=== PATIENT | female | born 1955 | race African-American/Black ===

== ENCOUNTER 2017-09-04 20:21 | Emergency (ER) | payer OTHER ==
[2017-09-04 21:16] LABS: Mean Corpuscular HGB CONC 32.7 g/dL (32.0-36.0); Mean Corpuscular Hemoglobin 33.7 pg (27.0-31.0); Mean Platelet Volume 7.5 fL (7.4-10.4); Platelet Count 161 thou/uL (130-400); RBC Distribution Width 11.8 % (11.5-14.5); Red Blood Cell (RBC) Count 4.76 mill/uL (4.20-5.40)
--- NOTE | 2017-09-04 21:21 | RAD ---
PORTABLE CHEST ONE VIEW: 09/04/17 HISTORY: 61-year-old female with history of dyspnea and shortness of breath. Heart size is normal. The lungs are clear. Bilateral nipple shadows are noted. No confluent pneumonia , overt edema, or pleural effusion. IMPRESSION: No acute intrathoracic disease. Stable from prior study. POS: [facility]
[2017-09-04 21:26] LABS: ALT (SGPT) 56 U/L (8-55); AST (SGOT) 99 U/L (5-34); Albumin 4.4 g/dL (3.5-5.0); Alcohol 130 mg/dL (Less than 10); Alkaline Phosphatase 43 U/L (40-150); Anion Gap 20 mmol/L (10-20); BUN (Urea Nitrogen) 5 mg/dL (9.8-20.1); Bilirubin, Total 0.6 mg/dL (0.2-1.2); Calc. Creatinine Clearance 0 mL/min (70-130); Carbon Dioxide 26 mmol/L (22-29); Chloride 91 mmol/L (98-107); Estimated GFR-MDRD Greater than 90; Globulin 2.9 g/dL (2.4-3.5); Glucose 96 mg/dL (70-105); Potassium 4.6 mmol/L (3.5-5.1); Protein, Total 7.3 g/dL (6.0-8.3); Sodium 132 mmol/L (136-145)
[2017-09-04] MEDS ORDERED: methylPREDNISolone Sod Succ/PF 125 MG/2 ML VIAL ONE (21:29)
[2017-09-04] MEDS ORDERED: Water For Inject, Bacteriostat 30 ML ONE (21:30)
[2017-09-04 21:35] LABS: CKMB 2.7 ng/mL (0-6.6); Troponin I Less than 0.010 ng/mL (< 0.028)
[2017-09-04 21:43] LABS: Eosinophils 1 % (0-10); Lymphocytes 27 % (21-51); MDiff Complete? YES; Monocytes 9 % (0-10); Neutrophil 60 % (42-75); Reactive Lymphocytes 3 % (0-10); White Blood Cell (WBC) Count 4.2 thou/uL (4.8-10.8)
--- NOTE | 2017-09-27 15:06 | EKG ---
Test Reason : Blood Pressure : / mmHG Vent. Rate : 101 BPM Atrial Rate : 101 BPM P-R Int : 126 ms QRS Dur : 066 ms QT Int : 340 ms P-R-T Axes : 079 063 082 degrees QTc Int : 440 ms Sinus tachycardia Biatrial enlargement Septal infarct , age undetermined Abnormal ECG Confirmed by ALEXANDRA HILL ([id number]), primer expeditor and drier ABIGAIL FRIEDMAN ([id number]) on 09/27/2017 3:04:34 PM Referred By: Confirmed By:ALEXANDRA HILL
== END 2017-09-05 00:04 | disposition home or self-care (01) ==
LOC: ERS 20:21
DX: J44.1 Chronic obstructive pulmonary disease with (acute) exacerbation (principal); F10.129 Alcohol abuse with intoxication, unspecified; E03.9 Hypothyroidism, unspecified; F32.9 Major depressive disorder, single episode, unspecified; Z79.899 Other long term (current) drug therapy; Y90.0 Blood alcohol level of less than 20 mg/100 ml
CPT/HCPCS: 36415; 71045; 80053; 80307; 82553; 84484; 85025; 93005; 94640; 96374; J2930; J7620

== ENCOUNTER 2017-12-18 13:57 | Outpatient (CLI) | payer OTHER | END 2017-12-18 13:58 | disposition home or self-care (01) | LOC: BICMAMMO 13:57 | PROVIDERS: ATTEND Internal Medicine | DX: Z12.31 Encounter for screening mammogram for malignant neoplasm of breast (principal); R92.1 Mammographic calcification found on diagnostic imaging of breast; Z80.3 Family history of malignant neoplasm of breast | CPT/HCPCS: 77063; 77067 ==

== ENCOUNTER 2020-02-17 07:31 | Inpatient (IN) | payer OTHER ==
[2020-02-17 08:27] LABS: #Lymphocytes 0.7 thou/uL (1.20-3.40); #Monocytes 0.9 thou/uL (0.11-0.59); #Neutrophils 9.7 thou/uL (1.40-6.50); %Basophils 0.4 % (0.0-1.0); %Eosinophils 0.3 % (0.0-10.0); %Monocytes 8.3 % (0.0-10.0); %Neutrophils 85.1 % (42.0-75.0); Hemoglobin 14.9 g/dL (12.0-16.0); Mean Corpuscular HGB CONC 30.9 g/dL (32.0-36.0); Mean Corpuscular Hemoglobin 32.2 pg (27.0-31.0); Mean Platelet Volume 7.5 fL (7.4-10.4); Platelet Count 301 thou/uL (130-400); RBC Distribution Width 11.4 % (11.5-14.5); Red Blood Cell (RBC) Count 4.65 mill/uL (4.20-5.40); White Blood Cell (WBC) Count 11.4 thou/uL (4.8-10.8)
[2020-02-17] MEDS ORDERED: Fentanyl 100 MCG/2 ML VIAL ONE (08:27)
[2020-02-17] MEDS ORDERED: Ondansetron PF 4 MG/2 ML Vial ONE (08:28)
--- NOTE | 2020-02-17 08:39 | RAD ---
Exam: Chest one view HISTORY:Shortness of breath. Pain. Comparison: 09/04/2017 FINDINGS: Cardiac silhouette: Normal Aorta: Unremarkable Pulmonary vessels: Normal Costophrenic angles: Clear LUNGS: No masses or consolidation. Stable hyperinflation. Pneumothorax: None Osseous abnormalities: None IMPRESSION: 1. No acute cardiac pulmonary process 2. Stable hyperinflation. Emphysema. COPD.
[2020-02-17 08:49] LABS: ALT (SGPT) 11 U/L (8-55); AST (SGOT) 24 U/L (5-34); Albumin 3.7 g/dL (3.4-4.8); Alkaline Phosphatase 39 U/L (40-110); Anion Gap 21 mmol/L (10-20); BUN (Urea Nitrogen) 11 mg/dL (9.8-20.1); Bilirubin, Total 0.5 mg/dL (0.2-1.2); CK (CPK) 36 U/L (29-168); Calc. Creatinine Clearance 0 mL/min (70-130); Calcium 9.9 mg/dL (7.8-10.44); Carbon Dioxide 30 mmol/L (23-31); Chloride 92 mmol/L (98-107); Estimated GFR-MDRD 88; Globulin 2.8 g/dL (2.4-3.5); Glucose 176 mg/dL (80-115); Potassium 4.3 mmol/L (3.5-5.1); Protein, Total 6.5 g/dL (6.0-8.3); Sodium 139 mmol/L (136-145)
[2020-02-17] MEDS ORDERED: Cefepime 2 GM VIAL ONE (08:52)
[2020-02-17 09:01] LABS: Bacteria/HPF 2+ HPF (None Seen); Bilirubin Negative (Negative); Blood, Urine 1+ (Negative); Clarity Extra Turbid (Clear); Glucose, Urine (Dipstick) 30 mg/dL (Negative); Ketone, Urine Negative (Negative); Leukocyte 500 Leu/uL (Negative); Nitrite Negative (Negative); Protein, Urine (Dipstick) 100 mg/dL (Neg-Trace); RBC/HPF 21-50 HPF (0-3); Specific Gravity, Urine 1.021 (1.002-1.036); Squamous Epithelial 0-3 HPF (0-3); WBC/HPF Greater than 50 HPF (0-3)
[2020-02-17] MEDS ORDERED: Vancomycin HCl 750 MG in Sodium Chloride 0.9% 250 ML 250 ML IVPB SCH (09:15)
--- NOTE | 2020-02-17 11:28 | CT ---
ABDOMEN AND PELVIC CT SCAN WITH IV CONTRAST: Date: 02/17/2020 HISTORY: Abdominal pain, shortness of breath. COMPARISON: 06/01/2018. FINDINGS: Bilateral centrilobular emphysema changes with some minimal increased markings in the right middle lo be and lingula, evidence for some probable chronic change. Very extensive ascites noted throughout th e abdomen and pelvis. There is very minimal or nonexistent intra-abdominal and retroperitoneal fat wh ich considerably lowers the sensitivity of this study. There are some markedly dilated air and fluid- filled small bowel loops, particularly in the pelvis where there appears to be some markedly dilated somewhat matted appearing small bowel loops with minimal gas and fecal material in the colon which is somewhat decompressed, evidence for high grade small bowel obstruction. The liver, gallbladder, panc reas, spleen, and adrenal glands are unremarkable. No evidence for renal hydronephrosis, renal calcul us, or obstruction. No CT evidence for acute appendicitis. IMPRESSION: 1. Very markedly dilated fluid and air-filled small bowel loops, including some matted appearing sma ll bowel loops down in the pelvis with very little gas and fecal material in a nondistended colon, ev idence for high grade small bowel obstruction. 2. Extensive ascites throughout the abdomen and pelvis. 3. No evidence for extraluminal or free intraperitoneal air. POS: [facility]
[2020-02-17] MEDS ORDERED: Acetaminophen 325 MG/10.15 ML UDCUP PO PRN (12:56)
[2020-02-17] MEDS ORDERED: Ondansetron PF 4 MG/2 ML Vial IVP PRN (12:56)
[2020-02-17] MEDS ORDERED: HumaLOG 300 UNITS/3 ML VIAL SC PRN (12:56)
--- NOTE | 2020-02-17 12:58 | PDOC.HHP ---
Hospitalist HPI - History of Present Illness abd pain, shortness of breath History of Present Illness: This is a 64 year old female with history of alcohol abuse, tobacco abuse, crack use, COPD on home oxygen who presents to the ER with abdominal pain and shortness of breath. THe patient is a poor historian. She states her abdominal pain started yesterday. It was in the lower quadrants and describes it as feeling similar to her periods. SHe stated the pain radiated to her back. Her pain is worst with laying in certain positions. She denies vaginal bleeding. She started vomiting yesterday after every meal and states the vomit was mucus - like in consistency. . SHe also reported burning pain with urination and urinary incontinence. THe patient denied eating any outside food recently. She had diarrhea on Sunday and since then has been constipated. Her last bowel movement was Sunday. She has not passed any gas. The patient also reports shortness of breath when she talks too much, is unable to comment on SOB at rest versus exertion. She denies cough, chest pain, fevers , chills, runny nose, sore throat. THe patient is very cachexic, reports she has lost a lot of weight in the past year for unclear reason. She does not know what medicines she takes at home, but denies taking aspirin or any blood thinners. ED Course: The patient presented to the ER with normal BP, tachycardia with heart rate 111 to 120. Labs showed a WBC of 11.3 and lactate of 9.0. UA showed > 50 WBC, turbid urine and 500 leukocyte esterase. EKG showed sinus tachycardia. CT abdomen showed high grade small bowel obstruction. General surgery was consulted , but the patient refused surgery. She has received 3L of IV fluid while in the ER. Her repeat lactate is 7. SHe received vancomycin and cefepime while in the ER. Hospitalist ROS - Review of Systems Constitutional: denies: fever, chills ENT: denies: mouth pain Respiratory: reports: shortness of breath. denies: cough, dry Cardiovascular: denies: chest pain, palpitations, orthopnea Gastrointestinal: reports: nausea, abdominal pain, constipation. denies: vomiting Genitourinary: reports: dysuria, incontinence. denies: frequency Musculoskeletal: reports: back pain Skin: denies: rash, lesions Neurological: denies: weakness, numbness Hospitalist History - Past Medical History Cardiac: reports: HTN Pulmonary: reports: COPD - Past Surgical History Past Surgical History: reports: Hysterectomy, Tonsillectomy - Family History Other Family History: heart problems in the family - Social History Smoking Status: Current every day smoker (smokes few cigarettes daily. She smokes crack occasionally. She drinks 6 beers daily) - Exam General Appearance: NAD, awake alert General - other findings: patient laying in bed curled up due to pain Eye: PERRL, anicteric sclera ENT: normocephalic atraumatic, no oropharyngeal lesions Neck: supple, no JVD Heart: RRR, no murmur, no gallops, no rubs Respiratory: CTAB, no wheezes, no rales, no ronchi Gastrointestinal: soft Gastrointestinal - other findings: diffuse tenderness in all four quadrants, mild distension, hypoactive BS Extremities: no cyanosis, no clubbing, no edema Skin: normal turgor, no lesions, no rashes Neurological: cranial nerve grossly intact, normal sensation to touch, no focal deficits, no new deficit Musculoskeletal: normal tone, normal strength Musculoskeletal - other findings: diffuse cachexia Psychiatric: normal affect, normal behavior, A&O x 3 Hospitalist Results - Labs Result Diagrams: 02/17/20 08:15 02/17/20 08:15 Lab results: WBC 11.4 thou/uL (4.8-10.8) H 02/17/20 08:15 Hgb 14.9 g/dL (12.0-16.0) 02/17/20 08:15 Hct 48.4 % (36.0-47.0) H 02/17/20 08:15 MCV 104.0 fL (78.0-98.0) H 02/17/20 08:15 Plt Count 301 thou/uL (130-400) 02/17/20 08:15 Neutrophils % 85.1 % (42.0-75.0) H 02/17/20 08:15 Sodium 139 mmol/L (136-145) 02/17/20 08:15 Potassium 4.3 mmol/L (3.5-5.1) 02/17/20 08:15 Chloride 92 mmol/L (98-107) L 02/17/20 08:15 Carbon Dioxide 30 mmol/L (23-31) 02/17/20 08:15 BUN 11 mg/dL (9.8-20.1) 02/17/20 08:15 Creatinine 0.68 mg/dL (0.6-1.1) 02/17/20 08:15 Glucose 176 mg/dL (80-115) H 02/17/20 08:15 Lactic Acid 7.0 mmol/L (0.5-2.2) H* 02/17/20 11:21 Calcium 9.9 mg/dL (7.8-10.44) 02/17/20 08:15 Total Bilirubin 0.5 mg/dL (0.2-1.2) 02/17/20 08:15 AST 24 U/L (5-34) 02/17/20 08:15 ALT 11 U/L (8-55) 02/17/20 08:15 Alkaline Phosphatase 39 U/L (40-110) L 02/17/20 08:15 Creatine Kinase 36 U/L (29-168) 02/17/20 08:15 Serum Total Protein 6.5 g/dL (6.0-8.3) 02/17/20 08:15 Albumin 3.7 g/dL (3.4-4.8) 02/17/20 08:15 Urine Ketones Negative mg/dL (Negative) 02/17/20 08:48 Urine Blood 1+ (Negative) A 02/17/20 08:48 Urine Nitrite Negative (Negative) 02/17/20 08:48 Ur Leukocyte Esterase 500 Ki/uL (Negative) A 02/17/20 08:48 Urine RBC 21-50 HPF (0-3) A 02/17/20 08:48 Urine WBC Greater than 50 HPF (0-3) A 02/17/20 08:48 Ur Squamous Epith Cells 0-3 HPF (0-3) 02/17/20 08:48 Urine Bacteria 2+ HPF (None Seen) A 02/17/20 08:48 - EKG Interpretation EKG: sinus tachycardia Hospitalist H&P A/P - Plan Plan: CT abdomen: markedly dilated fluid and air filled small bowel loops consistent with high grade WENDY Chest X ray: normal This is a 64 year old female with past medical history of COPD, hypertension, emphysema who presents with abdominal pain, found to have high grade SBO High grade small bowel obstruction - patient noted to have high grade obstruction on CT abdomen. SHe refused surgery. Currently not nauseous or vomiting, but if occurs place NG tube Severe lactic acidosis - lactate of 9 on presentation, likely ischemia related from high grade SBO vs from UTI - she is s/p 3L of fluid - continue IV fluids and IV antibiotics .BLood and urine culture pending. Chest X ray normal UTI - UA consistent with UTI, s/p vanc and cefepime - will continue empiric vanc and zosyn pending urine culture Ascites - likely from SBO - continue with hydration given lactic acidosis Chronic respiratory failure from COPD - albuterol prn. Chest X ray was normal History of hypertension - hold any home meds at this time Hyperglycemia - check hemoglobin A1C in am. Blood sugar 170's Diet: NPO DVT prophylaxis: will hold for now in case she needs surgery and changes mind Code status: full code
[2020-02-17] MEDS ORDERED: Sodium Chloride 0.9% 1,000 ML IV SCH (13:30)
[2020-02-17] MEDS ORDERED: Iopamidol-370 76% 500 ML 1 ML ONE (14:56)
[2020-02-17 18:14] LABS: Lactic Acid 3.6 mmol/L (0.5-2.2)
[2020-02-17 19:31] VITALS: BMI 11.5
[2020-02-17] MEDS: Sodium Chloride 0.9% 1,000 ML IV SCH (19:59)
[2020-02-17] MEDS: Piperacillin/Tazobactam 3.375 GM in Sodium Chloride 0.9% 100 ML IVPB SCH ×2 (22:09)
[2020-02-17] MEDS: Famotidine/PF 20 mg/2ml Vial SLOW IVP SCH (22:10)
[2020-02-17] MEDS: Vancomycin 1 GM in Premix Bag 1 BAG IVPB SCH (22:10)
[2020-02-18] MEDS: Sodium Chloride 0.9% 1,000 ML IV SCH ×2 (01:16→09:32)
[2020-02-18] MEDS: Piperacillin/Tazobactam 3.375 GM in Sodium Chloride 0.9% 100 ML IVPB SCH ×4 (02:07→20:48)
[2020-02-18 05:55] LABS: ALT (SGPT) 13 U/L (8-55); AST (SGOT) 33 U/L (5-34); Albumin 3.4 g/dL (3.4-4.8); Alkaline Phosphatase 31 U/L (40-110); Anion Gap 16 mmol/L (10-20); BUN (Urea Nitrogen) 12 mg/dL (9.8-20.1); Bilirubin, Total 0.4 mg/dL (0.2-1.2); Calc. Creatinine Clearance 60 mL/min (70-130); Calcium 8.8 mg/dL (7.8-10.44); Carbon Dioxide 24 mmol/L (23-31); Chloride 104 mmol/L (98-107); Estimated GFR-MDRD Greater than 90; Globulin 2.9 g/dL (2.4-3.5); Glucose 127 mg/dL (80-115); Potassium 4.9 mmol/L (3.5-5.1); Protein, Total 6.3 g/dL (6.0-8.3); Sodium 139 mmol/L (136-145)
[2020-02-18 06:27] LABS: Thyroid Stimulating Hormone 0.6423 uIU/mL (0.35-4.94)
[2020-02-18] MEDS ORDERED: Prevnar 13-Val Conj/PF 0.5 ML SYRINGE IM ONE (09:00)
[2020-02-18] MEDS: Folic Acid 0.4 MG in Syringe 0 ML SC SCH (09:32)
[2020-02-18] MEDS: Famotidine/PF 20 mg/2ml Vial SLOW IVP SCH ×2 (09:32→20:48)
[2020-02-18] MEDS: Vancomycin 1 GM in Premix Bag 1 BAG IVPB SCH ×2 (09:32→20:49)
[2020-02-18 09:55] LABS: Hemoglobin 12.3 g/dL (12.0-16.0); Mean Corpuscular HGB CONC 31.2 g/dL (32.0-36.0); Mean Corpuscular Hemoglobin 32.7 pg (27.0-31.0); Mean Platelet Volume 7.9 fL (7.4-10.4); Platelet Count 257 thou/uL (130-400); RBC Distribution Width 11.4 % (11.5-14.5); Red Blood Cell (RBC) Count 3.77 mill/uL (4.20-5.40); White Blood Cell (WBC) Count 16.2 thou/uL (4.8-10.8)
[2020-02-18 10:04] LABS: Lactic Acid 1.4 mmol/L (0.5-2.2)
[2020-02-18 11:47] LABS: Hemoglobin 10.6 g/dL (12.0-16.0); Mean Corpuscular Hemoglobin 32.1 pg (27.0-31.0); Mean Platelet Volume 7.7 fL (7.4-10.4); Platelet Count 261 thou/uL (130-400); RBC Distribution Width 11.4 % (11.5-14.5); Red Blood Cell (RBC) Count 3.29 mill/uL (4.20-5.40); White Blood Cell (WBC) Count 19.3 thou/uL (4.8-10.8)
--- NOTE | 2020-02-18 12:16 | RAD ---
SINGLE VIEW CHEST: Date: 02/18/2020 COMPARISON: CT abdomen/pelvis dated 02/17/2020. HISTORY: Shortness of breath. FINDINGS: Single view of the chest shows normal sized cardiomediastinal silhouette. There is volume loss in the right thorax. There may be a small right pleural effusion. Bilateral round symmetric opacities proje cting over the lower lobes likely represent nipple shadows. No pneumothorax is seen. Scarring is seen in both lung apices. Lucency beneath the left hemidiaphragm is concerning for possible free air beneath the left hemidiaph ragm. IMPRESSION: 1. Possible small right pleural effusion. 2. Possible free air beneath the left hemidiaphragm. This could be artifactual and represent superim position of the gastric bubble with the lower lung. Nurse, Serafin, in the patient's unit was notified of the findings at 1112 hours on 02/18/2020. Code CR. POS: [facility]
--- NOTE | 2020-02-18 12:16 | RAD ---
KUB: COMPARISON: 06/15/2003. CT abdomen/pelvis 02/17/2020. HISTORY: Followup small bowel obstruction. FINDINGS: An anterior view of the abdomen shows air in the stomach. There are also a few air-filled loops of s mall bowel in the left lower quadrant of the abdomen measuring up to 4.3 cm in size. Air and stool a re seen in the rectum. No suspicious calcifications are seen. IMPRESSION: Air-filled loops of small bowel may be secondary to ileus or small bowel obstruction. POS: [facility]
[2020-02-18 12:36] LABS: SARS-CoV-2 MS2 Positive; SARS-CoV-2 N Gene Negative; SARS-CoV-2 S Gene Negative; SARS-CoV-2 by NAA Not Detected (NotDetected); SARS-CoV-2 orf1ab Negative
[2020-02-18] MEDS ORDERED: Albuterol Sulfate 2.5 mg/3 ml Neb NEB PRN (12:46)
[2020-02-18] MEDS ORDERED: Mometasone 200 MCG/Formoterol 5 MCG 120 PUFF INHALER INH SCH (12:50)
--- NOTE | 2020-02-18 13:17 | CON ---
DATE OF CONSULTATION: HISTORY OF PRESENT ILLNESS: Mikala Chopra is a 64-year-old cachectic female, who is in the MICU. I was notified she is having difficulty breathing. She has an acute abdomen and has declined any surgical intervention. She has seen Dr. Auguste in office many years ago and apparently has longstanding history of significant tobacco abuse and significant alcohol abuse. She also has history of cocaine abuse in the past, particularly crack cocaine. She has smoked a pack a day for 30 years. Additional information is such that she comes into the hospital yesterday, presented with abdominal pain and shortness of breath. Not able to give much additional information at this stage, but previous extensive history is outlined, pertinent for past medical history of COPD, tobacco abuse, alcohol abuse, substance abuse, hypertension. PAST SURGICAL HISTORY: Apparently hysterectomy. HOME MEDICINE: Includes apparently albuterol inhaler. REVIEW OF SYSTEMS: Difficult to obtain. PHYSICAL EXAMINATION: GENERAL: Cachectic. VITAL SIGNS: Temperature 98, blood pressure , pulse 120, sats 100%, breathing 34 times a minute. CHEST: Decreased breath sounds. No wheezing. CARDIAC: Normal S1, S2. No gallops. ABDOMEN: Distended, soft. DIAGNOSTIC STUDIES: White count 19,000, H and H of 10 and 30. Lytes are normal. Urine is growing Enterococcus. TSH is normal. Lactic acid was markedly elevated. BNP was normal. X-ray shows free air possibly pleural effusion, marked hyperinflation. End-stage COPD, respiratory failure, acute abdomen, sepsis syndrome, cachexia, alcohol abuse, tobacco abuse. Apparently, the patient has refused surgery. She was started on Zosyn, thiamine, vancomycin, refusing neb treatments. Palliative Care is going to talk to the patient and the family. Clearly, I am concerned that she is going to have a cardiopulmonary arrest because of sepsis and because of her severe multiorgan dysfunction. We will follow while in the MICU. We will notify Dr. Auguste, who has seen her in the past. She did not want any surgical intervention. Hopefully, we can make her comfort care, DNR. This is a consultation note, 70 minutes, 50% direct patient care. Job ID: [id number]
--- NOTE | 2020-02-18 13:58 | PDOC.HOSPP ---
- Subjective Encounter Date: 02/18/20 Encounter Time: 09:30 Subjective: The patient states she denies abdominal pain but has pain when you touch her abdomen or she moves too much. She thinks she passed gas once last night. She has not had a bowel movement yet or passed gas today She has no nausea or vomiting. She is still not interested in surgery The patient states she feels short of breath, is requesting that she get her symbicort - Objective Vital Signs & Weight: Vital Signs (12 hours) Temp Pulse Ox 02/18/20 13:35 99 02/18/20 11:22 98.7 F 02/18/20 07:00 98.6 F Weight Admit Weight 73 lb 11.2 oz Weight 73 lb 11.2 oz Most Recent Monitor Data Heart Rate from ECG 119 NIBP 115/79 NIBP BP-Mean 91 Respiration from ECG 35 SpO2 100 I&O: 02/17/20 02/18/20 02/19/20 06:59 06:59 06:59 Intake Total 882 Balance 882 Result Diagrams: 02/18/20 11:29 02/18/20 03:30 Additional Labs: Accuchecks 02/18/20 02/18/20 02/18/20 12:18 06:23 00:13 POC Glucose 150 H 111 H 121 H 02/17/20 20:53 POC Glucose 128 H Hospitalist ROS - Review of Systems Constitutional: denies: fever, chills - Medication Medications: Active Medications Generic Name Dose Route Start Last Admin Trade Name Christopherq PRN Reason Stop Dose Admin Famotidine 20 mg 02/17/20 21:00 02/18/20 09:32 Pepcid SLOW IVP 20 mg Q12HR CHRIS Administration Sodium Chloride 1,000 mls @ 100 mls/hr 02/17/20 12:45 02/18/20 09:32 Normal Saline 0.9% IV 1,000 mls .Q10H CHRIS Administration Piperacillin Sod/Tazobactam 100 mls @ 200 mls/hr 02/17/20 14:00 02/18/20 09:32 Sod 3.375 gm/ Sodium Chloride IVPB 100 mls 0200,0800,1400,2000 CHRIS Administration Vancomycin HCl 1 gm/ Device 200 mls @ 200 mls/hr 02/17/20 21:00 09/16/20 09:32 IVPB 200 mls Q12HR CHRIS Administration Folic Acid 0.4 mg/ Syringe 0.08 mls @ 0 mls/hr 02/18/20 09:00 02/18/20 09:32 SC 0.08 mls DAILY CHRIS Administration Thiamine HCl 100 mg/ Sodium 51 mls @ 100 mls/hr 02/17/20 23:59 02/18/20 02:07 Chloride IVPB 51 mls Q24HR CHRIS Administration Mometasone Furoate/Formoterol Fumar 1 puff 02/18/20 12:50 02/18/20 13:05 Mometasone 200 Mcg/Formoterol 5 Mcg 120 Puff Inhaler INH 02/18/20 14:00 Not Given 1250 CHRIS - Exam General Appearance: NAD, awake alert Eye: PERRL, anicteric sclera ENT: normocephalic atraumatic, no oropharyngeal lesions Neck: no JVD Heart: RRR, no murmur, no gallops, no rubs Respiratory: CTAB, no wheezes, no rales, no ronchi Gastrointestinal - other findings: firm, distended, diffusely tender to palpation with some guarding Extremities: no edema Skin: normal turgor, no lesions, no rashes Neurological: cranial nerve grossly intact, normal sensation to touch, no focal deficits, no new deficit Hosp A/P - Plan CT abdomen: markedly dilated fluid and air filled small bowel loops consistent with high grade WENDY Chest X ray: normal Chest X ray: small right pleural effusion Abdominal X ray: ileus versus SBO This is a 64 year old female with past medical history of COPD, hypertension, emphysema who presents with abdominal pain, found to have high grade SBO High grade small bowel obstruction - patient noted to have high grade obstruction on CT abdomen. SHe refused surgery. - abdominal X ray shows persistent high grade obstruction but has no pain or na usea so do trial of clear liquids Severe lactic acidosis - normalized with IV fluids - will trial clear liquid diet Enterococcus UTI - UA consistent with UTI, s/p vanc and cefepime - will continue empiric vanc and zosyn, urine shows enterococcus. Pending urine culture sensitivities Shortness of breath - chest X ray shows questionable free air, but doubt it - mild left pleural effusion noted. Will d/c IV fluids Ascites - likely from SBO -will d/c IV fluids Chronic respiratory failure from COPD - albuterol prn. Added symbicort History of hypertension - hold any home meds at this time Hyperglycemia - check hemoglobin A1C in am. Blood sugar 170's Diet: NPO DVT prophylaxis: will hold for now in case she needs surgery and changes mind Code status: full code
[2020-02-18] MEDS: Mometasone 200 MCG/Formoterol 5 MCG 120 PUFF INHALER INH SCH (18:42)
[2020-02-18] MEDS: Fentanyl 100 MCG/2 ML VIAL SLOW IVP PRN (20:48)
[2020-02-19] MEDS: Piperacillin/Tazobactam 3.375 GM in Sodium Chloride 0.9% 100 ML IVPB SCH (01:54)
[2020-02-19 03:27] LABS: Hemoglobin 9.8 g/dL (12.0-16.0); Mean Corpuscular HGB CONC 30.4 g/dL (32.0-36.0); Mean Platelet Volume 8.4 fL (7.4-10.4); Platelet Count 209 thou/uL (130-400); RBC Distribution Width 11.4 % (11.5-14.5); Red Blood Cell (RBC) Count 3.05 mill/uL (4.20-5.40); White Blood Cell (WBC) Count 23.7 thou/uL (4.8-10.8)
[2020-02-19 04:01] LABS: Albumin 2.8 g/dL (3.4-4.8); Bilirubin, Total 0.7 mg/dL (0.2-1.2); Calcium 9.1 mg/dL (7.8-10.44); Chloride 107 mmol/L (98-107); Potassium 3.9 mmol/L (3.5-5.1); Sodium 141 mmol/L (136-145)
[2020-02-19 04:04] LABS: Globulin 2.6 g/dL (2.4-3.5); Glucose 89 mg/dL (80-115); Protein, Total 5.4 g/dL (6.0-8.3)
[2020-02-19 04:05] LABS: Carbon Dioxide 22 mmol/L (23-31)
[2020-02-19 04:06] LABS: Alkaline Phosphatase 37 U/L (40-110)
[2020-02-19 04:07] LABS: Calc. Creatinine Clearance 70 mL/min (70-130); Estimated GFR-MDRD Greater than 90
[2020-02-19 04:08] LABS: BUN (Urea Nitrogen) 9 mg/dL (9.8-20.1)
[2020-02-19 04:09] LABS: AST (SGOT) 42 U/L (5-34)
[2020-02-19 04:10] LABS: ALT (SGPT) 12 U/L (8-55)
[2020-02-19 04:11] LABS: Anion Gap 16 mmol/L (10-20)
[2020-02-19] MEDS: Fentanyl 100 MCG/2 ML VIAL SLOW IVP PRN ×2 (05:30→16:32)
[2020-02-19] MEDS: Mometasone 200 MCG/Formoterol 5 MCG 120 PUFF INHALER INH SCH ×2 (07:27→18:59)
[2020-02-19] MEDS ORDERED: Meropenem 2 GM in Admixture Fee 1 EACH IVPB SCH (07:53)
--- NOTE | 2020-02-19 07:56 | PDOC.HOSPP ---
- Subjective Encounter Date: 02/19/20 Encounter Time: 08:06 Subjective: The patient was initially noted to be lethargic. She opens eyes to command, but does not answer questions. Five minutes later she was more alert When I asked if her she wanted the surgery, she appeared to shake her head no . I asked her if she still wanted CPR/breathing tube if she stopped breathing, patient was not really able to answer the question and seemed to ignore the question. I spoke with the mother who is power of real estate attorney who stated she will try to come visit, but if she gets worst to make her DNR if patient isn't competent. Mother states that she has been trying to get the patient to come home and stay with her but the patient refused and wanted to go to rehab - Objective Vital Signs & Weight: Vital Signs (12 hours) Temp Pulse Ox 02/19/20 07:38 99.0 F 02/19/20 03:54 98.4 F 02/18/20 23:43 98.4 F 02/18/20 20:00 100 Weight Admit Weight 73 lb 11.2 oz Weight 78 lb Most Recent Monitor Data Heart Rate from ECG 117 NIBP 90/59 NIBP BP-Mean 69 Respiration from ECG 24 SpO2 100 I&O: 02/18/20 02/19/20 02/20/20 06:59 06:59 06:59 Intake Total 882 900 Output Total 0 Balance 882 900 Result Diagrams: 02/19/20 03:03 02/19/20 03:03 Additional Labs: Accuchecks 02/19/20 02/19/20 02/18/20 05:59 00:23 18:32 POC Glucose 92 108 H 100 02/18/20 12:18 POC Glucose 150 H Hospitalist ROS - Review of Systems Constitutional: denies: fever, chills - Medication Medications: Active Medications Generic Name Dose Route Start Last Admin Trade Name Freq PRN Reason Stop Dose Admin Famotidine 20 mg 02/17/20 21:00 02/18/20 20:48 Pepcid SLOW IVP 20 mg Q12HR CHRIS Administration Fentanyl 25 mcg 02/18/20 19:24 02/19/20 05:30 Fentanyl 100 Mcg/2 Ml Vial SLOW IVP 25 mcg Q3H PRN Administration Severe Pain (7-10) Folic Acid 0.4 mg/ Syringe 0.08 mls @ 0 mls/hr 02/18/20 09:00 02/18/20 09:32 SC 0.08 mls DAILY CHRIS Administration Thiamine HCl 100 mg/ Sodium 51 mls @ 100 mls/hr 02/17/20 23:59 02/19/20 00:19 Chloride IVPB 51 mls Q24HR CHRIS Administration Mometasone Furoate/Formoterol Fumar 1 puff 02/18/20 18:30 02/19/20 07:27 Mometasone 200 Mcg/Formoterol 5 Mcg 120 Puff Inhaler INH 1 puff BID-RT CHRIS Administration - Exam General Appearance: NAD, awake alert Eye: PERRL, anicteric sclera ENT: normocephalic atraumatic, no oropharyngeal lesions Neck: no JVD Heart: RRR, no murmur, no gallops, no rubs Respiratory: CTAB, no wheezes, no rales, no ronchi Respiratory - other findings: tachycardic and tachypneic Gastrointestinal: soft, normal bowel sounds, diminished bowl sounds Gastrointestinal - other findings: belly is firm, tender to palpation with some guarding Extremities: no cyanosis, no clubbing, no edema Skin: normal turgor, no lesions, no rashes Neurological: cranial nerve grossly intact, normal sensation to touch, no new deficit Hosp A/P - Plan CT abdomen: markedly dilated fluid and air filled small bowel loops consistent with high grade WENDY Chest X ray: normal Chest X ray: small right pleural effusion Abdominal X ray: ileus versus SBO This is a 64 year old female with past medical history of COPD, hypertension, emphysema who presents with abdominal pain, found to have high grade SBO High grade small bowel obstruction - patient noted to have high grade obstruction on CT abdomen. SHe is refusing surgery - repeat abdominal X ray -WBC is increasing, will switch antibiotics to meropenem - will place palliative care consult Severe lactic acidosis - normalized with IV fluids Enterococcus Feacalis UTI - UA shows 50-75, 000 colonies but patient had symptomatic dysuria - will dc zosyn. Will switch from zosyn to meropenem Shortness of breath - chest X ray shows questionable free air, but doubt it 02/17. REpeat chest XRa ytoday Ascites - likely from SBO - discontinued IV fluids Chronic respiratory failure from COPD - albuterol prn. Added symbicort History of hypertension - hold any home meds at this time Hyperglycemia - check hemoglobin A1C in am. Blood sugar 170's Diet: NPO DVT prophylaxis: will hold for now in case she needs surgery and changes mind Code status: full code
--- NOTE | 2020-02-19 08:22 | RAD ---
EXAM: Single view of the abdomen HISTORY: Small bowel obstruction COMPARISON: 02/18/2020 FINDINGS: Single view of the abdomen shows stable air-filled loops of small bowel in the abdomen. Air is seen to the level of the rectum. No suspicious calcifications are seen. The bones are unremarkable. IMPRESSION: Stable exam
--- NOTE | 2020-02-19 09:23 | RAD ---
PORTABLE SUPINE CHEST: HISTORY: Assess pleural effusion. Free air described on yesterday's exam. COMPARISON: Comparison is made to 02/18/2020. FINDINGS: The supine projection limits evaluation of free intraperitoneal air. If there is concern of free air , recommend abdominal survey with either upright or decubitus views. A hazy infiltrate and effusion on the right again noted. The left lung appears clear. There is gas seen in the stomach. No evidence of free air on this limited supine projection. IMPRESSION: 1. Hazy infiltrate in the right lung with a right effusion again noted. 2. If there is concern of free intraperitoneal air, recommend dedicated 2-view abdominal exam with e ither upright or decubitus views of abdomen. POS: [facility]
--- NOTE | 2020-02-19 09:39 | PRG ---
DATE OF SERVICE: 02/19/2020 SUBJECTIVE: Mikala Chopra is a 64-year-old female, who this morning denies any pain or difficulty breathing. OBJECTIVE: VITAL SIGNS: Her saturations in fact are 100% on 2 L, temperature 99, blood pressure 107/67, respirations 31, pulse 90. CHEST: No wheezing. No crackles. CARDIAC: Normal S1 and S2. No gallops. ABDOMEN: No masses. LABORATORY DATA: White count 20,000, H and H of 9 and 32, platelet count is normal. Lytes are normal. Urine is growing Enterococcus. ASSESSMENT AND PLAN: Abdominal sepsis, end-stage chronic obstructive pulmonary disease, alcohol and tobacco abuse. She is still not inclined to have surgical intervention. Pulmonary andres, we will continue neb treatments, supportive care. Prognosis remains poor. Job ID: [id number]
[2020-02-19] MEDS: Folic Acid 0.4 MG in Syringe 0 ML SC SCH (10:11)
[2020-02-19] MEDS: Famotidine/PF 20 mg/2ml Vial SLOW IVP SCH (10:11)
[2020-02-19] MEDS: Meropenem 2 GM, Admixture Fee 1 EACH in Sodium Chloride 0.9% 100 ML IVPB SCH ×2 (10:15→18:39)
--- NOTE | 2020-02-19 18:38 | PQF ---
CLINICAL DOCUMENTATION CLARIFICATION FORM: Dear Dr. Pablo Date: 02/19/20 Please exercise your independent, professional judgment in responding to the clarification form. Clinical indicators are provided on the bottom of this form for your review. Please check appropriate box(es): [ X ] Sepsis due to: __intra-abdominal infection from SBO [ ] Severe sepsis with associated acute organ dysfunction: [ ] Acute Respiratory Failure [ ] Acute Kidney injury w/o ATN [ ] Acute Kidney Injury w ATN [ ] Encephalopathy (metabolic) (septic) [ ] Disseminated Intravascular Coagulopathy (DIC) [ ] Hepatic Failure [ ] Additional/Other: please specify: [ ] Localized infection without sepsis [ ] SIRS due to non-infectious process (please specify etiology) [ ] with organ dysfunction [ ] without organ dysfunction [ ] Other diagnosis [ ] Unable to determine In addition, please specify: Present on Admission (POA): [ ] Yes [ ] No [ ] Unable to determine CONSULTATION NOTE 02/17- (DAVIS): "SEPSIS SYNDROME" PULSE 118 RR 26 WBC 02/16: 11.4 WBC 02/18: 23.7 LACTIC ACID 02/16: 9.2 RISKS: HIGH GRADE BOWEL OBSTRUCTION (PN 02/17- OBDULIO) ENTEROCOCCUS UTI (PN 02/17- OBDULIO) TREATMENT: IV FLUIDS (ER) IV VANCOMYCIN (ER-02/17) IV ZOSYN (02/16-02/18) IV CEFEPIME (ER) IV MERREM (START 02/18) URINE AND BLOOD CULTURES 02/16 CDS Signature: Alison Vázquez RN Phone #: [phone] Date: 02/19/20 This is a permanent part of the Medical Record [facility]
--- NOTE | 2020-02-19 18:59 | PQF ---
CLINICAL DOCUMENTATION CLARIFICATION FORM: Dear Dr. Pablo Date: 02/19/20 Please exercise your independent, professional judgment in responding to the clarification form. Clinical indicators are provided on the bottom of this form for your review. Please check appropriate box(es): [ ] Protein Calorie Malnutrition: [ ] Mild [ ] Moderate [ X ] Severe [ ] Other Malnutrition (please specify) [ ] Underweight without malnutrition [ ] Cachexia [ ] Other diagnosis [ ] Unable to determine In addition, please specify: Present on Admission (POA): [ ] Yes [ ] No [ ] Unable to determine For continuity of documentation, please document condition throughout progress notes and discharge summary. Thank You. DIETARY ASSESSEMENT 02/17: "PATIENT CLEARLY CACHECTIC, FAT LOSS AND MUSCLE WASTING TO ENTIRE BODY EASILY OBSERVED." "SEVERE MUSCLE WASTING AND FAT LOSS OBSERVED SUGGESTIVE OF SEVERE MALNUTRITION IN THE CONTEXT OF CHRONIC ILLNESS." BMI 12.2 RISKS: HIGH GRADE BOWEL OBSTRUCTION (H&P- OBDULIO) CRACK, ALCOHOL, AND TOBACCO ABUSE (H&P- OBDULIO) PER PATIENT- "HAS LOST A LOT OF WEIGHT IN THE PAST YEAR" TREATMENT: RECOMMENDATION OF INITIATING TPN (DIETARY ASSESSMENT 02/17) STANDARD NUTRITIONAL SUPPLEMENTS RECOMMENDED WHEN MEDICALLY APPROPRIATE (DIETARY ASSESSMENT 02/17) Moderate Malnutrition (in acute illness) Energy Intake: <75% of estimated energy requirement for > 7 days Weight Loss: 1-2%/1 week; 5%/ 1 month; 7.5%/3 months Other: mild body fat loss; mild muscle mass loss; mild fluid accumulation; Severe Malnutrition (in acute illness) Energy Intake: = 50% of estimated energy requirement for = 5 days Weight Loss: >2%/1 week; >5%/1 month; >7.5%/3 months Other: moderate body fat loss; moderate muscle mass loss; moderate- severe fluid accumulation; measurably reduced police radio dispatcher strength Moderate Malnutrition (in chronic illness) Energy Intake: <75% of estimated energy requirement for =1 month Weight Loss: 5%/1 month; 7.5%/3 months; 10%/6 months; 20%/1 year Other: mild body fat loss; mild muscle mass loss; mild fluid accumulation Severe Malnutrition (in chronic illness) Energy Intake: =75% of estimated energy requirement for =1 month Weight Loss: >5%/1 month; >7.5%/3 months; >10%/6 months; >20%/1 year Other: severe body fat loss; severe muscle mass loss; severe fluid accumulation; measurably reduced police radio dispatcher strength CDS Signature: Alison Vázquez RN Phone #: [phone] Date: 02/19/20 This is a permanent part of the Medical Record [facility]
[2020-02-19 19:08] VITALS: TEMP 97.1
--- NOTE | 2020-02-20 19:24 | DIS ---
DATE OF ADMISSION: 02/17/2020 DATE OF DISCHARGE: 02/19/2020 DATE OF EXPIRATION: 02/19/2020. DISCHARGE DIAGNOSES: 1. Severe sepsis secondary to intraabdominal infection from high-grade small-bowel obstruction. 2. Enterococcus faecalis urinary tract infection. 3. Shortness of breath. 4. Ascites. 5. Chronic respiratory failure from chronic obstructive pulmonary disease. CONSULTATIONS: 1. General surgery with Dr. Matt Metz. 2. Dr. Bob Whiteside, critical care. PROCEDURES: None. BRIEF HISTORY OF PRESENT ILLNESS: This is a 64-year-old female with past medical history of COPD, tobacco abuse, crack use, who presented to the emergency room with abdominal pain and shortness of breath. She stated that it was in her lower quadrant and felt similar to her periods. She reported vomiting after every meal. She also reported shortness of breath at rest. She was found to be tachycardic with heart rate of 111 to 120. White count was 11.3 and lactate was 9. UA showed turbid urine. CT of her abdomen showed a high-grade small-bowel obstruction. General Surgery was consulted and recommended that the patient have surgery; however, the patient refused. She was treated with IV vancomycin and cefepime and admitted for further workup. 1. Severe sepsis secondary to intraabdominal infection from Enterococcus faecalis urinary tract infection and high-grade small bowel obstruction: The patient was started on vancomycin and Zosyn. Her urine culture grew 50,000 to 75,000 Enterococcus. Vancomycin discontinued, and she was continued on Zosyn. Her white count increased following day, so she switched from Zosyn to meropenem. The patient had a repeat abdominal x-ray, which showed persistent ileus versus obstruction. The patient refused NG tube placement and she was not nauseous. She was given a clear liquid diet, which the patient did not tolerate. The patient continued to refuse surgery on a routine basis. She eventually started to have more labored breathing and progressively became more lethargic. Palliative Care was consulted. The patient was initially a full code; however, when the patient became more lethargic, she was not felt to have capacity. Her mother, who is a power of workers compensation attorney, made her a DNR after felt like the patient appeared to be dying. The patient was noted to have asystole on her monitor at 2022 hours with no palpable pulses. She was pronounced at 2022 hours. 2. Lactic acidosis: The patient presented with lactate of 9. This resolved after administration of IV fluids. 3. Shortness of breath: This is likely secondary to her small-bowel obstruction: Her chest x-ray showed questionable free air. Repeat chest x-ray on 02/18 showed a right lung infiltrate with a right-sided effusion. DISCHARGE PHYSICAL EXAMINATION: The patient . LABORATORY DATA: On 02/18: White count 22.7, hemoglobin 9.8, hematocrit 32.2, and platelet count 209. BMP on 02/18 was normal. LFTs on 02/18: AST 42, ALT 12, and alkaline phosphatase 37. Vitamin B12: 361. Folate: 11.2. TSH: 0.6. UA on 02/16: Turbid urine, 100 protein, 1+ blood, greater than 50 white blood cells, 21 to 50 rbc's, and 500 leukocyte esterase. COVID PCR on 02/16: Negative. IMAGING: Chest x-ray on 02/06: Shows stable hyperinflation. Emphysema. COPD. CT abdomen and pelvis on 02/16: Showed very markedly dilated fluid and air-filled small bowel loops including some matted-appearing small bowel loops down in the pelvis with very little gas and fecal material and nondistended colon, evidence for high-grade small-bowel obstruction. Extensive ascites throughout the abdomen and pelvis. Abdominal x-ray on 02/17: Air-filled loops of small bowel may be secondary to ileus or small-bowel obstruction. Chest x-ray on 02/17: Possible small right pleural effusion, possible free air beneath the left hemidiaphragm. Chest x-ray on 02/18: Hazy infiltrate in the right lung with a right effusion. Abdominal x-ray on 02/18: Air-filled loops of small bowel with air seen to level of the rectum. Job ID: [id number]
--- NOTE | 2020-02-21 13:40 | EKG ---
Test Reason : Blood Pressure : / mmHG Vent. Rate : 102 BPM Atrial Rate : 102 BPM P-R Int : 090 ms QRS Dur : 064 ms QT Int : 342 ms P-R-T Axes : 080 071 069 degrees QTc Int : 445 ms Sinus tachycardia with short W[place] Biatrial enlargement Septal infarct , age undetermined Abnormal ECG Confirmed by BINH CAPPS DO ([id number]), online content editor ROGER WILKINS ([id number] on 02/21/2020 1:40:08 PM Referred By: Confirmed By:BINH CAPPS DO
== END 2020-02-19 20:23 | disposition expired | DRG 871 ==
LOC: ERS 07:31 → ERHOLD 12:19 → IMCU/EMU 19:29
PROVIDERS: ADMIT Internal Medicine; ATTEND Internal Medicine
PROC: HZ2ZZZZ Detoxification Services for Substance Abuse Treatment (ICD-10-PCS; principal; 2020-02-17)
DX: A41.9 Sepsis, unspecified organism (principal); E43 Unspecified severe protein-calorie malnutrition; K65.9 Peritonitis, unspecified; K56.609 Unspecified intestinal obstruction, unspecified as to partial versus complete obstruction; E87.2 Acidosis; N39.0 Urinary tract infection, site not specified; R18.8 Other ascites; J96.10 Chronic respiratory failure, unspecified whether with hypoxia or hypercapnia; Z68.1 Body mass index [BMI] 19.9 or less, adult; J90 Pleural effusion, not elsewhere classified; K56.7 Ileus, unspecified; Z51.5 Encounter for palliative care; Z66 Do not resuscitate; Z20.828 Contact with and (suspected) exposure to other viral communicable diseases; J43.9 Emphysema, unspecified; E03.9 Hypothyroidism, unspecified; R65.20 Severe sepsis without septic shock; F32.9 Major depressive disorder, single episode, unspecified; F14.10 Cocaine abuse, uncomplicated; B95.2 Enterococcus as the cause of diseases classified elsewhere; I10 Essential (primary) hypertension; R73.9 Hyperglycemia, unspecified; F10.10 Alcohol abuse, uncomplicated; F17.210 Nicotine dependence, cigarettes, uncomplicated; I46.9 Cardiac arrest, cause unspecified; Z90.710 Acquired absence of both cervix and uterus; Z90.49 Acquired absence of other specified parts of digestive tract; Z71.6 Tobacco abuse counseling; Z88.2 Allergy status to sulfonamides; Z88.5 Allergy status to narcotic agent
CPT/HCPCS: 36415; 36416; 51701; 71045; 74018; 74177; 80053; 81003; 81015; 82550; 82607; 82746; 83605; 84443; 85025; 85027; 87040; 87077; 87086; 87186; 87635; 93005; 94664; 96360; 96361; 96365; 96366; 96367; 96375; J0692; J2185; J2405; J2543; J3010; J3370; J3411; J3490; J7050; Q9967; S0028; U0003